=== PATIENT | female | born 1960 | race African-American/Black ===

== ENCOUNTER 2016-08-02 16:43 | Emergency (ER) | payer OTHER ==
[~2016-08-02] VITALS: Ht 175.3 cm; Wt 86.2 kg
[2016-08-02 17:08] VITALS: BP 118/68
[2016-08-02] MEDS ORDERED: TRAMADOL HCL 50 MG TABLET ONE (17:22)
[2016-08-02] MEDS: TRAMADOL HCL 50 MG TABLET PO ONE (17:28)
== END 2016-08-02 17:59 | disposition home or self-care (01) ==
LOC: ER 16:44
DX: M25.561 Pain in right knee (principal); Z88.6 Allergy status to analgesic agent
CPT/HCPCS: 73564-TC; A4606; Z7610

== ENCOUNTER 2016-10-22 12:05 | Emergency (ER) | payer SELFPAY ==
[~2016-10-22] VITALS: Ht 175.3 cm; Wt 88.5 kg
[2016-10-22 12:05] VITALS: BP 134/107
[2016-10-22] MEDS ORDERED: ACETAMINOPHEN W/ CODEINE#3 1 EA TABLET ONE (13:11)
[2016-10-22] MEDS ORDERED: ACETAMINOPHEN W/ CODEINE#3 1 EA TABLET PO ONE (13:30)
--- NOTE | 2016-10-22 13:33 | NUR ---
Patient discharged to home in stable condition. Written and verbal after care instructions given. Patient verbalizes understanding of instruction.
== END 2016-10-22 13:34 | disposition home or self-care (01) ==
LOC: ER 12:07
DX: S70.02XA Contusion of left hip, initial encounter (principal); G89.29 Other chronic pain; M25.561 Pain in right knee; Z98.890 Other specified postprocedural states; Z88.6 Allergy status to analgesic agent; V09.20XA Pedestrian injured in traffic accident involving unspecified motor vehicles, initial encounter; Y93.89 Activity, other specified; Y92.89 Other specified places as the place of occurrence of the external cause; Y99.8 Other external cause status
CPT/HCPCS: 73503; 99284; A4606; Z7610; 73510-TC

== ENCOUNTER 2016-12-10 15:39 | Emergency (ER) | payer OTHER ==
[~2016-12-10] VITALS: Ht 177.8 cm; Wt 136.1 kg
[2016-12-10 15:40] VITALS: BP 156/95
--- NOTE | 2016-12-10 16:24 | NUR ---
pt is refusing urine sample at this time, made aware
[2016-12-10] MEDS ORDERED: MAG HYDROX/AL HYDROX/SIMETH 30 ML UDC PO ONE (16:30)
[2016-12-10] MEDS ORDERED: MAG HYDROX/AL HYDROX/SIMETH 30 ML UDC ONE (16:35)
--- NOTE | 2016-12-10 16:39 | NUR ---
PT. VERBALIZED UNDERSTANDING OF AFTERCARE INSTRUCTIONS.Patient discharged to home in stable condition. Written and verbal after care instructions given. Patient verbalizes understanding of instruction.
== END 2016-12-10 16:40 | disposition home or self-care (01) ==
LOC: ER 15:44
DX: R10.13 Epigastric pain (principal); Z88.8 Allergy status to other drugs, medicaments and biological substances; Z88.6 Allergy status to analgesic agent
CPT/HCPCS: A4606; Z7610

== ENCOUNTER 2017-02-21 13:53 | Emergency (ER) | payer OTHER ==
[~2017-02-21] VITALS: Ht 175.3 cm; Wt 95.3 kg
[2017-02-21 13:56] VITALS: BP 124/89
[2017-02-21] MEDS ORDERED: TDAP [DIPH/PERTUSSIS/TET] 0.5 ML VIAL IM ONE ×2 (14:20→14:30)
== END 2017-02-21 14:27 | disposition home or self-care (01) ==
LOC: ER 13:54
DX: S91.322A Laceration with foreign body, left foot, initial encounter (principal); W22.8XXA Striking against or struck by other objects, initial encounter; Y93.89 Activity, other specified; Y92.89 Other specified places as the place of occurrence of the external cause; Y99.8 Other external cause status
CPT/HCPCS: 90715; A4606; Z7610

== ENCOUNTER 2017-02-25 16:24 | Emergency (ER) | payer OTHER ==
[~2017-02-25] VITALS: Ht 170.2 cm; Wt 113.4 kg
[2017-02-25 16:50] VITALS: BP 108/86
[2017-02-25] MEDS ORDERED: ACETAMINOPHEN ES 500 MG TABLET ONE (17:10)
[2017-02-25] MEDS ORDERED: ACETAMINOPHEN ES 500 MG TABLET PO ONE (17:30)
== END 2017-02-25 17:54 | disposition home or self-care (01) ==
LOC: ER 16:25
DX: R10.9 Unspecified abdominal pain (principal); V89.2XXA Person injured in unspecified motor-vehicle accident, traffic, initial encounter; Y92.480 Sidewalk as the place of occurrence of the external cause; Y93.55 Activity, bike riding; Y99.8 Other external cause status
CPT/HCPCS: 99282; A4606; Z7610

== ENCOUNTER 2017-10-02 11:05 | Emergency (ER) | payer OTHER ==
[~2017-10-02] VITALS: Ht 175.3 cm; Wt 83.9 kg
[2017-10-02 11:15] VITALS: BP 162/98
[2017-10-02] MEDS ORDERED: KETOROLAC TROMETHAMINE INJ 30 MG/ML VIAL ONE (12:24)
[2017-10-02] MEDS ORDERED: KETOROLAC TROMETHAMINE INJ 60 MG/2 ML VIAL IM ONE (12:30)
== END 2017-10-02 12:50 | disposition home or self-care (01) ==
LOC: ER 11:06
DX: G89.29 Other chronic pain (principal); M25.561 Pain in right knee; M17.0 Bilateral primary osteoarthritis of knee; Z88.6 Allergy status to analgesic agent; Z60.2 Problems related to living alone
CPT/HCPCS: 96372; 99283; A4606; J1885; Z7610

== ENCOUNTER 2023-01-08 16:57 | Emergency (ER) | payer OTHER ==
[~2023-01-08] VITALS: Ht 175.3 cm; Wt 136.1 kg
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
--- NOTE | 2023-01-08 18:45 | NUR ---
X RAY AT BEDSIDE
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
--- NOTE | 2023-01-08 19:55 | NUR ---
Patient does not wish to proceed with medical care recommended by Dr. Samayoa. Patient given information related to possible complications, up to and including , which could occur as a result of leaving the hospital at this time. Patient verbalizes understanding of risks involved due to leaving against medical advice. Patient has signed AMA form.
[2023-01-08 19:56] VITALS: BP 123/78; TEMP 98.1; O2SAT 100
== END 2023-01-08 19:57 | disposition left against medical advice (07) ==
LOC: ER 17:02
DX: M25.512 Pain in left shoulder (principal); Z88.8 Allergy status to other drugs, medicaments and biological substances; V19.9XXA Pedal cyclist (driver) (passenger) injured in unspecified traffic accident, initial encounter; Y93.89 Activity, other specified; Y92.89 Other specified places as the place of occurrence of the external cause; Y99.8 Other external cause status
CPT/HCPCS: 99283; 73030; J7030

== ENCOUNTER 2023-01-10 17:53 | Emergency (ER) | payer OTHER ==
[~2023-01-10] VITALS: Ht 175.3 cm; Wt 113.4 kg
[2023-01-10 18:20] VITALS: BP 162/91; TEMP 99; O2SAT 97
[2023-01-10] MEDS ORDERED: KETOROLAC TROMETHAMINE INJ 60 MG/2 ML VIAL IM ONE (19:00)
[2023-01-10] MEDS ORDERED: KETOROLAC TROMETHAMINE INJ 30 MG/ML VIAL ONE (19:35)
== END 2023-01-10 19:39 | disposition home or self-care (01) ==
LOC: ER 17:59
DX: M25.512 Pain in left shoulder (principal); Z60.2 Problems related to living alone; Z88.1 Allergy status to other antibiotic agents
CPT/HCPCS: 99283; 96372; J1885

== ENCOUNTER 2024-11-12 20:37 | Emergency (ER) | payer OTHER ==
[~2024-11-12] VITALS: Ht 175.3 cm; Wt 81.6 kg
[2024-11-12] MEDS ORDERED: PANT40TA49 PO (21:47)
[2024-11-12] MEDS ORDERED: AMOX-430 PO (21:47)
[2024-11-12 22:00] VITALS: BP 157/85; TEMP 98.3; O2SAT 100
== END 2024-11-12 22:01 | disposition home or self-care (01) ==
LOC: ER 20:47
DX: R10.13 Epigastric pain (principal); K08.89 Other specified disorders of teeth and supporting structures; I10 Essential (primary) hypertension; E11.9 Type 2 diabetes mellitus without complications; Z88.6 Allergy status to analgesic agent; Z60.2 Problems related to living alone

== ENCOUNTER 2025-05-21 17:26 | Emergency (ER) | payer OTHER ==
[~2025-05-21] VITALS: Ht 175.3 cm; Wt 81.6 kg
[~2025-05-21 17:26] MED LIST: AMOX-430 PO; PANT40TA49 PO
[2025-05-21 17:47] VITALS: BP 150/70; TEMP 98; O2SAT 97
== END 2025-05-21 20:42 | disposition home or self-care (01) ==
LOC: ER 17:29
DX: M79.675 Pain in left toe(s) (principal); E11.9 Type 2 diabetes mellitus without complications; I10 Essential (primary) hypertension; Z60.2 Problems related to living alone; Z79.899 Other long term (current) drug therapy
CPT/HCPCS: 73630-TC